=== PATIENT | male | born 1950 | race American Indian/Alaskan Native ===

== ENCOUNTER 2018-05-11 10:13 | Outpatient (CLI) | payer BC, MEDICARE, OTHER ==
--- NOTE | 2018-05-11 11:41 | Vascular Lab Report ---
PROCEDURE: VL ARTERIAL DUPLEX LE LT TECHNIQUE: Duplex Doppler ultrasound of the left lower extremity arteries was performed with image d ocumentation. HISTORY: LEFT FOOT PAIN COMPARISONS: None . FINDINGS: LEFT LOWER EXTREMITY: Arterial waveforms: Triphasic . Thrombus: None . Stenosis: None . Color signal: Normal . Significant segmental velocity differential: None . IMPRESSION: No evidence of significant arterial insufficiency in the left lower extremity. This document is electronically signed by Rosaura Fabian., May 11 2018 11:38:55 AM ET
== END 2018-05-11 10:14 | disposition home or self-care (01) ==
LOC: VAS 10:13
DX: M79.672 Pain in left foot (principal)